=== PATIENT | male | born 2000 | race Caucasian/White ===

== ENCOUNTER 2020-01-20 10:57 | Emergency (ER) | payer OTHER ==
[~2020-01-20] VITALS: Ht 182.9 cm; Wt 82.6 kg
[2020-01-20 11:02] VITALS: BP 134/68
--- NOTE | 2020-01-20 11:26 | NUR ---
PT REPORT TO LEANDRA BARRETT. PT CARE TRANSFERRED.
[2020-01-20] MEDS ORDERED: LIDOCAINE-MPF 1%, 5ML INFIL ONE (11:30)
[2020-01-20] MEDS ORDERED: DIPH,PERTUSS(ACELL),TET VAC/PF 0.5 ML IM-VACC ONE ×2 (11:30→11:34)
[2020-01-20] MEDS ORDERED: LIDOCAINE-MPF 1%, 5ML ONE (11:34)
[2020-01-20] MEDS ORDERED: NEOSPORIN OINT. PKT 1 PACKET ONE (11:59)
== END 2020-01-20 12:25 | disposition home or self-care (01) ==
LOC: ED 12:00
DX: S61.213A Laceration without foreign body of left middle finger without damage to nail, initial encounter (principal); X58.XXXA Exposure to other specified factors, initial encounter; Y93.89 Activity, other specified; Y92.69 Other specified industrial and construction area as the place of occurrence of the external cause; Y99.0 Civilian activity done for income or pay
CPT/HCPCS: 12041; 90471; 90715; 99284